=== PATIENT | female | born 1990 | race Caucasian/White ===

== ENCOUNTER 2017-04-01 22:26 | Inpatient (IN) | payer BC, OTHER ==
[2017-04-01] MEDS ORDERED: Methylergonovine 0.2 MG/1 ML Amp IM PRN (23:18)
[2017-04-01] MEDS ORDERED: Butorphanol 1 MG/ML SDV IVPUSH PRN (23:18)
[2017-04-01] MEDS ORDERED: Lidocaine 1% 50 ML MDV INJECT PRN (23:18)
[2017-04-01] MEDS ORDERED: Nalbuphine 10 MG/1 ML Vial IVPUSH PRN (23:18)
[2017-04-01] MEDS ORDERED: Misoprostol 200 MCG Tab PO PRN (23:18)
[2017-04-01] MEDS ORDERED: Water For Irrigation,Sterile 1,000 ML Container IRR PRN (23:18)
[2017-04-01] MEDS ORDERED: Sodium Chloride 0.9% 2.5 ML Syringe FLUSH PRN (23:18)
[2017-04-01] MEDS ORDERED: Sodium Chloride 0.9% 10 ML Syringe FLUSH PRN (23:18)
[2017-04-01] MEDS ORDERED: Carboprost Tromethamine 250 MCG/1 ML Amp IM PRN (23:18)
[2017-04-01] MEDS: Lactated Ringers 1,000 ML IV SCH (23:35)
[2017-04-02] MEDS: Lactated Ringers 1,000 ML IV SCH ×2 (01:36→02:13)
[2017-04-02] MEDS ORDERED: Ropivacaine 0.2% 2 MG/ML 20 ML SDV ONE (02:01)
[2017-04-02] MEDS ORDERED: fentaNYL 100 MCG/2 ML SDV ONE (02:01)
[2017-04-02] MEDS ORDERED: Ropivacaine 100 ML ONE (02:01)
--- NOTE | 2017-04-02 02:33 | PCM.PREANE ---
Preanesthetic Assessment - Anesthesia/Transfusion/Family Hx Anesthesia History: Prior Anesthesia Without Reaction Family History of Anesthesia Reaction: No Transfusion History: No Prior Transfusion(s) - Review of Systems Other: Reports: None - Physical Assessment ASA Class: 2 Mental Status: Alert & Oriented x3 Airway Class: Mallampati = 1 Dentition: Reports: Normal Dentition Thyro-Mental Finger Breadths: 3 Mouth Opening Finger Breadths: 3 ROM/Head Extension: Full - Lab Values: Laboratory Last Values WBC 12.31 K/uL (4.0-11.0) H 04/01/17 23:35 RBC 4.84 M/uL (4.30-5.90) 04/01/17 23:35 Hgb 13.6 g/dL (12.0-16.0) 04/01/17 23:35 Hct 40.4 % (36.0-46.0) 04/01/17 23:35 MCV 83.5 fL (80.0-98.0) 04/01/17 23:35 MCH 28.1 pg (27.0-32.0) 04/01/17 23:35 MCHC 33.7 g/dL (31.0-37.0) 04/01/17 23:35 RDW Std Deviation 44.0 fl (28.0-62.0) 04/01/17 23:35 RDW Coeff of Elly 14 % (11.0-15.0) 04/01/17 23:35 Plt Count 306 K/uL (150-400) 04/01/17 23:35 MPV 9.10 fL (7.40-12.00) 04/01/17 23:35 Nucleated RBC % 0.0 /100WBC 04/01/17 23:35 Nucleated RBCs # 0 K/uL 04/01/17 23:35 Membrane Rupture POSITIVE 04/01/17 20:45 Blood Type B POSITIVE 04/01/17 23:35 Antibody Screen NEGATIVE 04/01/17 23:35 - Allergies Allergies/Adverse Reactions: Allergies Allergy/AdvReac Type Severity Reaction Status Date / Time No Known Allergies Allergy Verified 04/02/17 01:35 - Blood Blood Available: Yes Product(s) Available: PRBC - Acknowledgements Anesthesia Type Planned: Epidural Pt an Appropriate Candidate for the Planned Anesthesia: Yes Alternatives and Risks of Anesthesia Discussed w Pt/Guardian: Yes Pt/Guardian Understands and Agrees with Anesthesia Plan: Yes 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: Neurological History: Reports: Migraines - Past Surgical History HEENT Surgical History: Reports: Other (See Below) Other HEENT Surgeries/Procedures: wisdom teeth extraction and removal of calcium build up on cheek (benign) GI Surgical History: Reports: Hernia, Inguinal - SUBSTANCE USE Smoking Status *Q: Never Smoker Recreational Drug Use History: No - CURRENT (IN HOUSE) MEDS Current Meds: Current Medications Butorphanol Tartrate (Stadol) 1 mg IVPUSH Q1H PRN PRN Reason: Pain Carboprost Tromethamine (Hemabate Ds) 250 mcg IM ASDIRECTED PRN PRN Reason: Post Hemorrhage Lactated Ringer's (Ringers, Lactated) 1,000 mls @ 150 mls/hr IV ASDIRECTED FRANCISCO Last Admin: 04/02/17 02:13 Dose: 999 mls/hr Oxytocin/Sodium Chloride (Oxytocin 30 Unit/500 Ml-Ns) 30 unit in 500 mls @ 999 mls/hr IV TITRATE [facility] Lidocaine HCl (Xylocaine 1%) 50 ml INJECT .ONCE PRN PRN Reason: Laceration repair Methylergonovine Maleate (Methergine) 0.2 mg IM ASDIRECTED PRN PRN Reason: Post Hemorrhage Misoprostol (Cytotec) 200 mcg PO .ONCE PRN PRN Reason: Post Hemorrhage Nalbuphine HCl (Nubain) 10 mg IVPUSH Q1H PRN PRN Reason: Pain (severe 7-10) Sodium Chloride (Saline Flush) 10 ml FLUSH ASDIRECTED PRN PRN Reason: Keep Vein Open Sodium Chloride (Saline Flush) 2.5 ml FLUSH ASDIRECTED PRN PRN Reason: Keep Vein Open Sterile Water (Sterile Water For Irrigation) 1,000 ml IRR ASDIRECTED PRN PRN Reason: delivery Discontinued Medications Fentanyl (Sublimaze) Confirm Administered Dose 200 mcg .ROUTE .STK-MED ONE Stop: 04/02/17 02:02 Ropivacaine (Naropin 0.2%) Confirm Administered Dose 100 mls @ as directed .ROUTE .STK-MED ONE Stop: 04/02/17 02:02 Ropivacaine (Naropin 0.2%) Confirm Administered Dose 20 ml .ROUTE .STK-MED ONE Stop: 04/02/17 02:02
[2017-04-02] MEDS ORDERED: ePHEDrine 50 MG/ML SDV ONE (02:53)
[2017-04-02] MEDS: Oxytocin/0.9 % Sodium Chloride 30 UNIT/500 ML BAG IV SCH ×2 (05:39→06:21)
[2017-04-02] MEDS ORDERED: Methylergonovine 0.2 MG/1 ML Amp IM PRN (06:46)
[2017-04-02] MEDS ORDERED: Benzocaine/Menthol 20%-0.5% Spray 78 GM Cannister TOP PRN (06:46)
[2017-04-02] MEDS ORDERED: Lanolin 100% Cream 7 GM Tube TOP PRN (06:46)
[2017-04-02] MEDS ORDERED: Bisacodyl 10 MG Supp RECTAL PRN (06:46)
[2017-04-02] MEDS ORDERED: Witch Hazel Medicated Pads 40/Jar TOP PRN (06:46)
[2017-04-02] MEDS ORDERED: Docusate Sodium 100 MG Cap PO PRN (06:46)
--- NOTE | 2017-04-02 07:31 | OR ---
SURGEON: Brianna Abel M.D. DATE OF PROCEDURE: 04/02/2017 PREOPERATIVE DIAGNOSIS: A 40-week intrauterine , active spontaneous labor. POSTOPERATIVE DIAGNOSIS: A 40-week intrauterine , active spontaneous labor. PROCEDURE: 1. Term spontaneous vaginal delivery. 2. Repair of left labial laceration. ANESTHESIA: Epidural. ESTIMATED BLOOD LOSS: Less than 300 mL. FINDINGS: Live born female, score 8 and 9. Weight is 2890 g. Placenta was delivered spontaneously. Schultze intact with 3 vessels noted to be extensively calcified. Upon delivery of the fetus, there was a body cord also wrapped around the leg and partially wrapped around the neck. COMPLICATIONS: None known. DISPOSITION: Mother and baby are in LDRP in good condition. BRIEF HISTORY: This is a 26-year-old female. She is G1, P0. She presents with spontaneous rupture of membranes followed by onset of active spontaneous labor. She arrived at 3 cm dilated. Overall heart tones are category 1; however, she would have occasional episodes of category 2 heart tones with some deep variable decelerations. She received an epidural for pain control when she was 4-5 cm dilated. She progressed to complete again with episodes of category 1 alternating with episodes of category 2 heart tones. DESCRIPTION OF PROCEDURE: With the patient in dorsal lithotomy position, under adequate epidural analgesia, the patient pushed over a 20-minute time period to a 5+ station, at which time the head was delivered spontaneously and atraumatically over the perineum with support with subsequent delivery of the infant's shoulders and body without any difficulty. The nuchal body and leg cord were unwrapped, which I believe was the cause of the decelerations and the was handed to the mother in the presence of the nurse attending delivery. Dr. Munguia was also called due to the decelerations and was present at the time of delivery. The infant was a live born female, score 8 and 9, weighing 2890 g. After the cord had ceased to pulsate, it was doubly clamped and cut. Cord blood was collected for cord ABGs as well as routine cord blood sampling. Pitocin was initiated after delivery of the to assist with delivery of the placenta. At 35 minutes, aggressive fundal massage and gentle traction as well as sweeping the lower uterine segment to begin the process of release allowed the placenta to deliver spontaneously intact with 3 vessels. Upon inspection of the pelvis and perineum, there were no periurethral, vaginal sidewall, cervical, rectal, or perineal lacerations. There was a left labial laceration that was hemostatic, however, for cosmesis the labia was reapproximated using a running suture of 2-0 Polysorb. Final sponge, needle, and instrument counts were correct. There were no known complications. Mother and baby remained in LDRP in good condition. AURA HODGE /[id number]
[2017-04-02] MEDS: Acetaminophen 500 MG Tab PO PRN ×3 (08:08→23:30)
[2017-04-02] MEDS: Ibuprofen 800 MG Tab PO PRN ×3 (08:09→23:28)
[2017-04-02] MEDS: oxyCODONE 5 MG Tab PO PRN ×2 (11:53→20:56)
--- NOTE | 2017-04-02 18:18 | PCM48HPAN ---
Post Anesthesia Note - EVALUATION WITHIN 48HRS OF ANESTHETIC Vital Signs in Normal Range: Yes Patient Participated in Evaluation: Yes Respiratory Function Stable: Yes Airway Patent: Yes Cardiovascular Function Stable: Yes Hydration Status Stable: Yes Pain Control Satisfactory: Yes Nausea and Vomiting Control Satisfactory: Yes Mental Status Recovered: Yes
[2017-04-03] MEDS: Ibuprofen 800 MG Tab PO PRN (07:35)
[2017-04-03] MEDS: Acetaminophen 500 MG Tab PO PRN (07:35)
--- NOTE | 2017-04-03 08:41 | PCM.PNPP ---
- General Info Date of Service: 04/03/17 Admission Dx/Problem (Free Text): 26 P1 s/p stable Subjective Update: Denies any complains , ambulating and tolerating regular diet Functional Status: Reports: Pain Controlled, Tolerating Diet, Ambulating, Urinating - Review of Systems General: Reports: No Symptoms HEENT: Reports: No Symptoms Pulmonary: Reports: No Symptoms Cardiovascular: Reports: No Symptoms Gastrointestinal: Reports: No Symptoms Genitourinary: Reports: No Symptoms Musculoskeletal: Reports: No Symptoms Skin: Reports: No Symptoms Neurological: Reports: No Symptoms Psychiatric: Reports: No Symptoms - General Info Date of Service: 04/03/17 - Patient Data Vital Signs - Most Recent: Last Vital Signs Temp 36.6 C 04/02/17 20:16 Pulse 69 04/02/17 20:16 Resp 18 04/02/17 20:16 BP 111/65 04/02/17 20:16 Pulse Ox 97 04/02/17 20:16 Weight - Most Recent: 80.286 kg Lab Results - Last 24 Hours: Laboratory Results - last 24 hr 04/03/17 Range/Units 05:52 Hgb 12.5 (12.0-16.0) g/dL Hct 37.8 (36.0-46.0) % Med Orders - Current: Current Medications Acetaminophen (Tylenol Extra Strength) 1,000 mg PO Q4H PRN PRN Reason: Pain Last Admin: 04/03/17 07:35 Dose: 1,000 mg Benzocaine/Menthol (Dermoplast Pain Relief 20%-0.5% [place]) 78 gm TOP ASDIRECTED PRN PRN Reason: Perineal Comfort Measure Last Admin: 04/02/17 08:10 Dose: 78 gm Bisacodyl (Dulcolax) 10 mg RECTAL .ONCE PRN PRN Reason: Constipation Docusate Sodium (Colace) 100 mg PO BID PRN PRN Reason: Constipation Emollient Ointment (Lansinoh Hpa) 0 gm TOP ASDIRECTED PRN PRN Reason: Sore Nipples Last Admin: 04/02/17 08:09 Dose: 7 gm Ibuprofen (Motrin) 800 mg PO Q6H PRN PRN Reason: Pain Last Admin: 04/03/17 07:35 Dose: 800 mg Methylergonovine Maleate (Methergine) 0.2 mg IM .ONCE PRN PRN Reason: Excessive Vaginal Bleeding Oxycodone HCl (Oxycodone) 5 mg PO Q2H PRN PRN Reason: Pain Last Admin: 04/02/17 20:56 Dose: 5 mg Witch Nayeli (Tucks) 1 pad TOP ASDIRECTED PRN PRN Reason: comfort care Discontinued Medications Butorphanol Tartrate (Stadol) 1 mg IVPUSH Q1H PRN PRN Reason: Pain Carboprost Tromethamine (Hemabate Ds) 250 mcg IM ASDIRECTED PRN PRN Reason: Post Hemorrhage Ephedrine Sulfate (Ephedrine Sulfate) Confirm Administered Dose 50 mg .ROUTE .STK-MED ONE Stop: 04/02/17 02:54 Fentanyl (Sublimaze) Confirm Administered Dose 200 mcg .ROUTE .STRexly-MED ONE Stop: 04/02/17 02:02 Lactated Ringer's (Ringers, Lactated) 1,000 mls @ 150 mls/hr IV ASDIRECTED [facility] Last Admin: 04/02/17 02:13 Dose: 999 mls/hr Oxytocin/Sodium Chloride (Oxytocin 30 Unit/500 Ml-Ns) 30 unit in 500 mls @ 999 mls/hr IV TITRATE [facility] Last Admin: 04/02/17 06:21 Dose: 150 mls/hr Ropivacaine (Naropin 0.2%) Confirm Administered Dose 100 mls @ as directed .ROUTE .[place] MD-MED ONE Stop: 04/02/17 02:02 Lidocaine HCl (Xylocaine 1%) 50 ml INJECT .ONCE PRN PRN Reason: Laceration repair Methylergonovine Maleate (Methergine) 0.2 mg IM ASDIRECTED PRN PRN Reason: Post Hemorrhage Misoprostol (Cytotec) 200 mcg PO .ONCE PRN PRN Reason: Post Hemorrhage Nalbuphine HCl (Nubain) 10 mg IVPUSH Q1H PRN PRN Reason: Pain (severe 7-10) Ropivacaine (Naropin 0.2%) Confirm Administered Dose 20 ml .ROUTE .STRexly-MED ONE Stop: 04/02/17 02:02 Sodium Chloride (Saline Flush) 10 ml FLUSH ASDIRECTED PRN PRN Reason: Keep Vein Open Sodium Chloride (Saline Flush) 2.5 ml FLUSH ASDIRECTED PRN PRN Reason: Keep Vein Open Sterile Water (Sterile Water For Irrigation) 1,000 ml IRR ASDIRECTED PRN PRN Reason: delivery Last Admin: 04/02/17 06:34 Dose: 1,000 ml - Infant Interaction Disposition, : Bastian in Room with Family Support Person: - Recovery Exam Fundal Tone: Firm Fundal Level: 1 Fingerbreadths Below Umbilicus Fundal Placement: Midline Lochia Amount: Small Lochia Color: Rubra/Red Perineum Description: Intact, Minimal Bruising/Swelling Episiotomy/Laceration: Approximated Bladder Status: Voiding Urinary Elimination: Voided - Exam General: Alert, Oriented HEENT: Pupils Equal Neck: Supple Lungs: Clear to Auscultation Cardiovascular: Regular Rate, Regular Rhythm GI/Abdominal Exam: Normal Bowel Sounds Extremities: Normal Inspection Psy/Mental Status: Alert - Problem List & Annotations (1) Vaginal delivery SNOMED Code(s): 967448610 Code(s): O80 - ENCOUNTER FOR FULL-TERM UNCOMPLICATED DELIVERY Status: Acute Current Visit: Yes - Problem List Review Problem List Initiated/Reviewed/Updated: Yes - Assessment Assessment:: 26 yo s/p , minimal lochia , breast feeding stable - Plan Plan:: Discharge home Pain control with OTC tylenol and motrin Follow up in 6 weeks If fever > 101 or Heavy vaginal bleeding Call [facility]
== END 2017-04-03 10:35 | disposition home or self-care (01) | DRG 560 ==
LOC: MW.OBCHECK 22:26 → MW.OB 22:26 → MW.OBCHECK 23:22 → OBSVTOIN 04-02 05:39 → MW.OB 04-02 13:45
PROVIDERS: ADMIT Obstetrics & Gynecology; ATTEND Obstetrics & Gynecology
PROC: 10E0XZZ Delivery of Products of Conception, External Approach (ICD-10-PCS; principal; 2017-04-02)
DX: O70.0 First degree perineal laceration during delivery (principal); O76 Abnormality in fetal heart rate and rhythm complicating labor and delivery; O69.1XX0 Labor and delivery complicated by cord around neck, with compression, not applicable or unspecified; Z3A.40 40 weeks gestation of pregnancy; Z37.0 Single live birth
CPT/HCPCS: 36415; 51702; 59025; 59409; 84112; 85014; 85018; 85027; 86850; 86900; 86901; A9270-GY; J2590; J7120

== ENCOUNTER 2019-07-23 09:27 | Inpatient (IN) | payer BC, OTHER ==
[2019-07-23] MEDS ORDERED: Tranexamic Acid 1,000 MG in Sodium Chloride 0.9% 100 ML IV PRN (10:15)
[2019-07-23] MEDS ORDERED: Butorphanol 1 MG/ML SDV IVPUSH PRN (10:15)
[2019-07-23] MEDS ORDERED: Sodium Chloride 0.9% 2.5 ML Syringe FLUSH PRN (10:15)
[2019-07-23] MEDS ORDERED: Terbutaline 1 MG/ML SDV SUBCUT PRN (10:15)
[2019-07-23] MEDS ORDERED: Nalbuphine 10 MG/1 ML Vial IVPUSH PRN (10:15)
[2019-07-23] MEDS ORDERED: Misoprostol 200 MCG Tab PO PRN (10:15)
[2019-07-23] MEDS ORDERED: Sodium Chloride 0.9% 10 ML SDV IV PRN (10:15)
[2019-07-23] MEDS ORDERED: Methylergonovine 0.2 MG/1 ML Amp IM PRN (10:15)
[2019-07-23] MEDS ORDERED: Lidocaine 1% 50 ML MDV INJECT PRN (10:15)
[2019-07-23] MEDS ORDERED: Sodium Chloride 0.9% 10 ML Syringe FLUSH PRN (10:15)
[2019-07-23] MEDS ORDERED: Carboprost Tromethamine 250 MCG/1 ML Amp IM PRN (10:15)
[2019-07-23] MEDS ORDERED: Oxytocin/0.9 % Sodium Chloride 30 UNIT/500 ML BAG IV SCH ×2 (10:15)
[2019-07-23] MEDS ORDERED: Water For Irrigation,Sterile 1,000 ML Container IRR PRN (10:15)
[2019-07-23] MEDS: Lactated Ringers 1,000 ML IV SCH ×2 (11:18→13:51)
[2019-07-23 11:22] LABS: BLOOD UREA NITROGEN,BUN 7 mg/dL (7.0-18.0); CARBON DIOXIDE,CO2 21.7 mmol/L (21.0-32.0); CHLORIDE,CL 104 mmol/L (98-107); GLUCOSE RANDOM 126 mg/dL (74-106); POTASSIUM,K 3.7 mmol/L (3.5-5.1); SODIUM,NA 139 mmol/L (136-145)
[2019-07-23] MEDS ORDERED: Ropivacaine 0.2% PF 2 MG/ML 20 ML SDV ONE (13:07)
[2019-07-23] MEDS ORDERED: Bupivicaine/fentaNYL/NS 250 ML ONE (13:07)
--- NOTE | 2019-07-23 13:15 | PCM.PREANE ---
Preanesthetic Assessment - Procedure Proposed Procedure: labor epidural - Anesthesia/Transfusion/Family Hx Anesthesia History: Prior Anesthesia Without Reaction Family History of Anesthesia Reaction: No Transfusion History: No Prior Transfusion(s) - Review of Systems General: No Symptoms Pulmonary: No Symptoms Cardiovascular: No Symptoms Gastrointestinal: No Symptoms Neurological: No Symptoms Other: Reports: None - Physical Assessment Height: 5 ft 7 in Weight: 81.647 kg ASA Class: 2 Mental Status: Alert & Oriented x3 Airway Class: Mallampati = 1 Dentition: Reports: Normal Dentition Thyro-Mental Finger Breadths: 3 Mouth Opening Finger Breadths: 3 ROM/Head Extension: Full Lungs: Clear to Auscultation, Normal Respiratory Effort Cardiovascular: Regular Rate, Regular Rhythm - Lab Values: Laboratory Last Values WBC 11.31 K/uL (4.0-11.0) H 07/23/19 10:45 RBC 4.53 M/uL (4.30-5.90) 07/23/19 10:45 Hgb 13.0 g/dL (12.0-16.0) 07/23/19 10:45 Hct 39.7 % (36.0-46.0) 07/23/19 10:45 MCV 87.6 fL (80.0-98.0) 07/23/19 10:45 MCH 28.7 pg (27.0-32.0) 07/23/19 10:45 MCHC 32.7 g/dL (31.0-37.0) 07/23/19 10:45 RDW Std Deviation 45.3 fl (28.0-62.0) 07/23/19 10:45 RDW Coeff of Elly 14 % (11.0-15.0) 07/23/19 10:45 Plt Count 279 K/uL (150-400) 07/23/19 10:45 MPV 8.70 fL (7.40-12.00) 07/23/19 10:45 Neut % (Auto) 77.3 % (48.0-80.0) 07/23/19 10:45 Lymph % (Auto) 17.4 % (16.0-40.0) 07/23/19 10:45 [place] % (Auto) 4.5 % (0.0-15.0) 07/23/19 10:45 Eos % (Auto) 0.6 % (0.0-7.0) 07/23/19 10:45 Baso % (Auto) 0.2 % (0.0-1.5) 07/23/19 10:45 Neut # (Auto) 8.7 K/uL (1.4-5.7) H 07/23/19 10:45 Lymph # (Auto) 2.0 K/uL (0.6-2.4) 07/23/19 10:45 [place] # (Auto) 0.5 K/uL (0.0-0.8) 07/23/19 10:45 Eos # (Auto) 0.1 K/uL (0.0-0.7) 07/23/19 10:45 Baso # (Auto) 0.0 K/uL (0.0-0.1) 07/23/19 10:45 Nucleated RBC % 0.0 /100WBC 07/23/19 10:45 Nucleated RBCs # 0 K/uL 07/23/19 10:45 Sodium 139 mmol/L (136-145) 07/23/19 10:45 Potassium 3.7 mmol/L (3.5-5.1) 07/23/19 10:45 Chloride 104 mmol/L (98-107) 07/23/19 10:45 Carbon Dioxide 21.7 mmol/L (21.0-32.0) 07/23/19 10:45 BUN 7 mg/dL (7.0-18.0) 07/23/19 10:45 Creatinine 0.7 mg/dL (0.6-1.0) 07/23/19 10:45 Est Cr Clr Drug Dosing TNP 07/23/19 10:45 Estimated GFR (MDRD) > 60.0 ml/min 07/23/19 10:45 Glucose 126 mg/dL (74-106) H 07/23/19 10:45 Uric Acid 4.8 mg/dL (2.6-7.2) 07/23/19 10:45 Calcium 8.8 mg/dL (8.5-10.1) 07/23/19 10:45 Total Bilirubin 0.2 mg/dL (0.2-1.0) 07/23/19 10:45 AST 11 IU/L (15-37) L 07/23/19 10:45 ALT 20 IU/L (14-63) 07/23/19 10:45 Alkaline Phosphatase 119 U/L (46-116) H 07/23/19 10:45 Total Protein 7.1 g/dL (6.4-8.2) 07/23/19 10:45 Albumin 3.1 g/dL (3.4-5.0) L 07/23/19 10:45 Globulin 4.0 g/dL (2.6-4.0) 07/23/19 10:45 Albumin/Globulin Ratio 0.8 (0.9-1.6) L 07/23/19 10:45 Urine Color YELLOW 07/23/19 09:35 Urine Appearance CLEAR 07/23/19 09:35 Urine pH 6.0 (5.0-8.0) 07/23/19 09:35 Ur Specific [place] <= 1.005 (1.001-1.035) 07/23/19 09:35 Urine Protein NEGATIVE mg/dL (NEGATIVE) 07/23/19 09:35 Urine Glucose (UA) NEGATIVE mg/dL (NEGATIVE) 07/23/19 09:35 Urine Ketones NEGATIVE mg/dL (NEGATIVE) 07/23/19 09:35 Urine Occult Blood NEGATIVE (NEGATIVE) 07/23/19 09:35 Urine Nitrite NEGATIVE (NEGATIVE) 07/23/19 09:35 Urine Bilirubin NEGATIVE (NEGATIVE) 07/23/19 09:35 Urine Urobilinogen 0.2 EU/dL (<2.0) 07/23/19 09:35 Ur Leukocyte Esterase NEGATIVE (NEGATIVE) 07/23/19 09:35 Ur Random Creatinine 17.7 mg/dL 07/23/19 09:35 U Random Total Protein < 6.0 mg/dL (<11.9) 07/23/19 09:35 Protein/Creatinin Ratio TNP 07/23/19 09:35 Membrane Rupture POSITIVE 07/23/19 09:30 Blood Type B POSITIVE 07/23/19 10:45 Antibody Screen NEGATIVE 07/23/19 10:45 - Allergies Allergies/Adverse Reactions: Allergies Allergy/AdvReac Type Severity Reaction Status Date / Time No Known Allergies Allergy Verified 04/02/17 01:35 - Blood Blood Available: Yes Product(s) Available: PRBC - Anesthesia Plan Pre-Op Medication Ordered: None - Acknowledgements Anesthesia Type Planned: Epidural Pt an Appropriate Candidate for the Planned Anesthesia: Yes Alternatives and Risks of Anesthesia Discussed w Pt/Guardian: Yes Pt/Guardian Understands and Agrees with Anesthesia Plan: Yes PreAnesthesia Questionnaire Gastrointestinal History: Reports: Other (See Below) Other Gastrointestinal History: Surgery in grade school [employer] History: Reports: Neurological History: Reports: Migraines Endocrine/Metabolic History: Reports: Other (See Below) Other Endocrine/Metabolic History: non-toxic goiter - Past Surgical History HEENT Surgical History: Reports: Other (See Below) Other HEENT Surgeries/Procedures: wisdom teeth extraction and removal of calcium build up on cheek (benign) GI Surgical History: Reports: Hernia, Inguinal - SUBSTANCE USE Smoking Status *Q: Never Smoker Recreational Drug Use History: No - CURRENT (IN HOUSE) MEDS Current Meds: Current Medications Butorphanol Tartrate (Stadol) 1 mg IVPUSH Q1H PRN PRN Reason: Pain Carboprost Tromethamine (Hemabate Ds) 250 mcg IM ASDIRECTED PRN PRN Reason: Post Hemorrhage Lactated Ringer's (Ringers, Lactated) 1,000 mls @ 150 mls/hr IV ASDIRECTED FRANCISCO Last Admin: 07/23/19 11:18 Dose: 150 mls/hr Oxytocin/Sodium Chloride (Oxytocin 30 Unit/500 Ml-Ns) 30 unit in 500 mls @ 999 mls/hr IV TITRATE [facility]CO Tranexamic Acid 1,000 mg/ (Sodium Chloride) 110 mls @ 660 mls/hr IV ONETIME PRN PRN Reason: Bleeding Oxytocin/Sodium Chloride (Oxytocin 30 Unit/500 Ml-Ns) 30 unit in 500 mls @ 2 mls/hr IV TITRATE FRANCISCO; Protocol Last Titration: 07/23/19 12:00 Dose: 4 munits/min, 4 mls/hr Lidocaine HCl (Xylocaine 1%) 50 ml INJECT ONETIME PRN PRN Reason: Laceration repair Methylergonovine Maleate (Methergine) 0.2 mg IM ASDIRECTED PRN PRN Reason: Post Hemorrhage Misoprostol (Cytotec) 200 mcg PO ONETIME PRN PRN Reason: Post Hemorrhage Nalbuphine HCl (Nubain) 10 mg IVPUSH Q1H PRN PRN Reason: Pain (severe 7-10) Sodium Chloride (Saline Flush) 10 ml FLUSH ASDIRECTED PRN PRN Reason: Keep Vein Open Sodium Chloride (Saline Flush) 2.5 ml FLUSH ASDIRECTED PRN PRN Reason: Keep Vein Open Sodium Chloride (Normal Saline) 10 ml IV ASDIRECTED PRN PRN Reason: IV Use Sterile Water (Sterile Water For Irrigation) 1,000 ml IRR ASDIRECTED PRN PRN Reason: delivery Terbutaline Sulfate (Brethine) 0.25 mg SUBCUT ASDIRECTED PRN PRN Reason: Tacysystole Discontinued Medications Fentanyl/Bupivacaine HCl (Fentanyl/Bupivacaine/Ns 2 Mcg-0.125% 250 Ml) Confirm Administered Dose 250 mls @ as directed .ROUTE .STK-MED ONE Stop: 07/23/19 13:08 Ropivacaine (Naropin 0.2%) Confirm Administered Dose 20 ml .ROUTE .STK-MED ONE Stop: 07/23/19 13:08
[2019-07-23] MEDS ORDERED: Ibuprofen 400 MG Tab PO PRN (18:45)
[2019-07-23] MEDS ORDERED: Benzocaine/Menthol 20%-0.5% Spray 78 GM Cannister TOP PRN (18:45)
[2019-07-23] MEDS ORDERED: Acetaminophen 500 MG Tab PO PRN (18:45)
[2019-07-23] MEDS ORDERED: Bisacodyl 10 MG Supp RECTAL PRN (18:45)
[2019-07-23] MEDS ORDERED: Lanolin 100% Cream 7 GM Tube TOP PRN (18:45)
--- NOTE | 2019-07-23 19:54 | OR ---
SURGEON: Oscar Venegas MD DATE OF PROCEDURE: 07/23/2019 INDICATION FOR PROCEDURE: A 28-year-old, G2, P 1-0-0-1, at 38 weeks and 1 day admitted with premature rupture of membranes. The patient had rupture of membranes at home and was confirmed with AmnioSure. She had otherwise uncomplicated and was GBS negative. She was not dilated on admission and was given Pitocin for induction. She progressed with Pitocin but had recurrent variable decelerations to the 60 to 80s. An IUPC was placed with amnioinfusion which helped with the recurrent decelerations. She continued make cervical change and became fully dilated and began pushing with contractions. PREOPERATIVE DIAGNOSES: 1. Varner intrauterine at 38 weeks and 1 day. 2. Longitudinal vaginal septum. POSTOPERATIVE DIAGNOSES: 1. Varner intrauterine at 38 weeks and 1 day. 2. Longitudinal vaginal septum. PROCEDURES PERFORMED: Normal spontaneous vaginal delivery, resection of vaginal septum. ANESTHESIA: Epidural. ANESTHESIOLOGIST: Dr. Yon Oseguera. ESTIMATED BLOOD LOSS: 300 mL. FINDINGS: A viable male . score of 7 and 8. Weight of 3400. Nuchal x1. A longitudinal vaginal septum was noted at the vaginal introitus, about 1 cm wide. It was already at the middle from prior delivery. She also had a small remnant of a transverse septum along the right vaginal wall. DESCRIPTION OF PROCEDURE: The patient pushed with contractions for approximately 10 minutes. The head delivered in occiput anterior position, restituted ROT. Tight nuchal cord was noted x1. Anterior shoulder delivered easily followed by posterior shoulder and remaining body. The nuchal cord was reduced after delivery. The baby was placed on maternal chest and evaluated by awaiting nursery staff. The cord was clamped and cut after 60 seconds and no longer pulsating. The baby was slightly pale and did not have a strong cry initially, but responded well to stimulation and suctioning. The placenta was removed with gentle traction on the umbilical cord. It was examined and found to be intact. The uterus was firm and at the level of the umbilicus, bleeding was light. She had a small periurethral laceration on the left side, which was repaired with interrupted stitches of 3-0 vicryl. Attention was then turned to the removal of the vaginal septum. A hemostat was used to grasp the base of the superior portion of vaginal septum just above the vaginal mucosa. It was transected with scissors. The vaginal mucosa was closed in running fashion using 3-0 Vicryl. The same was performed for the inferior portion of the vaginal septum as well as the right vaginal wall. Hemostasis was confirmed. The vaginal septum was sent to pathology. The patient tolerated the procedure well, she was given care instructions. PAVAN HODGE /[id number]
[2019-07-23] MEDS: Witch Hazel Medicated Pads 40/Jar TOP PRN (20:12)
[2019-07-23] MEDS: Docusate Sodium 100 MG Cap PO PRN (20:14)
[2019-07-23] MEDS: Acetaminophen 500 MG Tab PO PRN (23:29)
[2019-07-24] MEDS: Ibuprofen 800 MG Tab PO PRN ×2 (02:21→08:45)
[2019-07-24] MEDS: Acetaminophen 500 MG Tab PO PRN ×2 (04:06→14:34)
[2019-07-24] MEDS: Docusate Sodium 100 MG Cap PO PRN (08:45)
--- NOTE | 2019-07-24 14:41 | PCM48HPAN ---
Post Anesthesia Note - EVALUATION WITHIN 48HRS OF ANESTHETIC Vital Signs in Normal Range: Yes Patient Participated in Evaluation: Yes Respiratory Function Stable: Yes Airway Patent: Yes Cardiovascular Function Stable: Yes Hydration Status Stable: Yes Pain Control Satisfactory: Yes Nausea and Vomiting Control Satisfactory: Yes Mental Status Recovered: Yes Vital Signs: Last Vital Signs Temp 36.4 C 07/24/19 08:00 Pulse 80 07/24/19 08:00 Resp 16 07/24/19 08:00 BP 118/78 07/24/19 08:00 Pulse Ox 96 07/24/19 08:00
[2019-07-24] MEDS: Witch Hazel Medicated Pads 40/Jar TOP PRN (20:46)
== END 2019-07-24 23:50 | disposition home or self-care (01) | DRG 807 ==
LOC: MW.OBCHECK 09:27 → MW.OB 09:28 → MW.OBCHECK 11:05 → OBSVTOIN 17:40 → MW.OB 22:09
PROVIDERS: ADMIT Obstetrics & Gynecology; ATTEND Obstetrics & Gynecology
PROC: 10E0XZZ Delivery of Products of Conception, External Approach (ICD-10-PCS; principal; 2019-07-23)
PROC: 3E033VJ Introduction of Other Hormone into Peripheral Vein, Percutaneous Approach (ICD-10-PCS; 2019-07-23)
PROC: 0UQMXZZ Repair Vulva, External Approach (ICD-10-PCS; 2019-07-23)
DX: O42.02 Full-term premature rupture of membranes, onset of labor within 24 hours of rupture (principal); Z37.0 Single live birth; O34.63 Maternal care for abnormality of vagina, third trimester; O69.1XX0 Labor and delivery complicated by cord around neck, with compression, not applicable or unspecified; Z3A.38 38 weeks gestation of pregnancy; Q52.129 Other and unspecified longitudinal vaginal septum
CPT/HCPCS: 36415; 51702; 59025; 59409; 80053; 81003; 82570; 82803; 84112; 84156; 84550; 85014; 85018; 85025; 86592; 86593; 86850; 86900; 86901; A9270-GY; J2590; J2795; J3010; J7120